=== PATIENT | female | born 1945 | race Caucasian/White ===

== ENCOUNTER 2016-08-02 08:20 | Emergency (ER) | payer MEDICARE, OTHER ==
--- NOTE | 2016-08-02 09:15 | ER NURSING DOCUMENTATION ---
Nurse's Notes [facility] Name:Jaida Woodall Age:70 yrs Sex:Female :1945 Arrival Date:08/02/2016 Time:08:20 Bed1 Private MD: Diagnosis:Cellulitis of Finger Presentation: 08/02 08:27 Acuity: MARY JANE 4 tg 08:33 Presenting complaint: Patient states: Lac on left ring finger tip- occurred several tg days ago, treated in another ED with "gel tape." Pt concerned because wound has begun throbbing (yesterday). Pt concerned for possible infection or that some of the "gel tape" is still in the wound. Transition of care: patient was not received from another setting of care. 08:33 Method Of Arrival: Private Vehicle tg Triage Assessment: 08:34 General: Appears in no apparent distress, Behavior is cooperative, pleasant. Pain: tg Complains of pain in palmar aspect of distal phalanx of left ring finger. Neuro: Level of Consciousness is awake, alert. Musculoskeletal: Range of motion intact in all extremities. Injury Description: Avulsion wound is moist, no obvious/significant swelling or redness. around wound site. Historical: - Allergies: No known drug Allergies; - Home Meds: 1. Aspirin Oral 2. antidepressant - PMHx: DEPRESSION; cardiac history; - PSHx: Unable to obtain; - Tetanus: < 10 years. - Ebola Screening: : Patient negative for fever greater than or equal to 101.5 degrees Fahrenheit, and additional compatible Ebola Virus Disease symptoms. Patient denies exposure to infectious person. Patient denies travel to an Ebola-affected area in the 21 days before illness onset. No symptoms or risks identified at this time. . - Immunization history: Flu Vaccine < 1 year. - Social history: Smoking status: Patient states was never smoker of tobacco. Screenin:37 Infectious Disease Risk Unable to Obtain. Abuse screen: Denies threats or abuse. Denies tg injuries from another. Nutritional screening: No deficits noted. Assessment: 08:37 See Triage Assessment done by same RN. tg Vital Signs: 09:14 BP 128 / 108; Pulse 84; Resp 16; Pulse Ox 90% ; Pain 3/10; tg ED Course: 08:21 Patient arrived in ED. ds 08:25 Shiva Fisher MD is Attending Physician. tl1 08:27 Triage completed. tg 08:33 Yadiel Carlos, RN is Primary Nurse. tg 08:36 Arm band placed on. tg 08:37 Valuables Remains with patient. tg 09:14 Shiva Fisher MD is Referral Physician. tl1 09:14 Wound care to laceration located on palmar aspect of distal phalanx of left ring finger tg was cleaned with soap and water, dressed with bacitracin, tube gauze, xeroform. Administered Medications: No medications were administered Outcome: 09:14 Discharge ordered by . tl1 09:15 Discharged to home ambulatory. tg 09:15 Condition: stable 09:15 Discharge Assessment: Patient awake, alert and oriented x 3. No cognitive and/or functional deficits noted. Patient verbalized understanding of disposition instructions. 09:15 Instructed on discharge instructions, follow up and referral plans. wound care. 09:15 Patient left the ED. tg 04 09:29 Discharge F/U Call: Unable to reach: non-working number lp Signatures: Yadiel Carlos, RN RN Angeline Collins RN RN lp Srot, Sylvia, Reg Reg ds Shiva Fisher MD MD tl1
--- NOTE | 2016-08-02 09:16 | ER PHYSICIAN DOCUMENTATION ---
Physician Documentation [facility] ([place], [place]) Name:Jaida Woodall Age:70 yrs Sex:Female :1945 Arrival Date:08/02/2016 Time:08:20 Bed1 Private MD: Shiva Reynolds Disposition: 08/02 10:00 Chart complete. tl1 Disposition: 08/02/16 09:14 Discharged to Home/Self Care. Impression: Cellulitis of Finger. - Condition is Good. - Discharge Instructions: CELLULITIS, Clindamycin - CELLULITIS. - Prescriptions for Clindamycin HCl 300 mg Oral - take 1 capsule by ORAL route every 6 hours for 7 days; 28 capsule. - Medical Reconciliation form form. - Follow up: Shiva Fisher MD; When: 2 - 3 days; Reason: Recheck today's complaints, Continuance of care. - Problem is new. - Symptoms are unchanged. HPI: 08:26 This 70 yrs old Female presents to ER with complaints of Finger Injury - L tl1 HAND. 08:30 The patient or guardian reports a laceration, clean, 1 cm(s). The complaints affect the tl1 radial aspect of index finger tip, left hand. Context: The problem was sustained at home, resulted from Cutting an onion with a very sharp knife.. Onset: The symptom(s)/episode began/occurred suddenly, 4 day(s) ago. The patient has been recently seen by a physician: another ED. Today she has noted increased throbbing and perhaps a slight increase in redness. She's worried about possible infection. She says she had an ablation for A fib with removal of her left atrial appendage in May and that she has a wire in her heart , apparently part of a device to monitor her heart beat.. Historical: - Allergies: No known drug Allergies; - Home Meds: 1. Aspirin Oral 2. antidepressant - PMHx: DEPRESSION; cardiac history; - PSHx: Unable to obtain; - Tetanus: < 10 years. - Ebola Screening: : Patient negative for fever greater than or equal to 101.5 degrees Fahrenheit, and additional compatible Ebola Virus Disease symptoms. Patient denies exposure to infectious person. Patient denies travel to an Ebola-affected area in the 21 days before illness onset. No symptoms or risks identified at this time. . - Immunization history: Flu Vaccine < 1 year. - Social history: Smoking status: Patient states was never smoker of tobacco. ROS: 08:30 MS/extremity: Positive for laceration. tl1 08:30 All other systems are negative. Exam: 08:30 Constitutional: This is a well developed, well nourished patient who is awake, alert, tl1 and in no acute distress. 08:30 Musculoskeletal/extremity: Extremities: grossly normal except: noted in the radial aspect of distal phalanx of left index finger: laceration, , THis is superficial. There is minimal proximal erythema .. 08:30 Musculoskeletal/extremity: Extremities: grossly normal except: tl1 08:30 Skin: Exam negative for see above. Vital Signs: 09:14 BP 128 / 108; Pulse 84; Resp 16; Pulse Ox 90% ; Pain 3/10; tg MDM: 08:26 Patient medically screened. tl1 08:30 Data reviewed: vital signs, nurses notes, and as a result, I will discharge patient. tl1 Counseling: I had a detailed discussion with the patient and/or guardian regarding: the historical points, exam findings, and any diagnostic results supporting the discharge/admit diagnosis, the need for outpatient follow up, to return to the emergency department if symptoms worsen or persist or if there are any questions or concerns that arise at home. Special discussion: This mild erythema looks like normal healing to me, but I can't r/o early infection. this was re-dressed. I asked her to recheck this tomorrow and start clinda if it looks like the redness is spreading.. 08/02 09:14 Order name: Wound Care; Complete Time: 09:14 tg Dispensed Medications: No medications were administered Signatures: Yadiel Carlos, RN RN tg Shiva Fisher MD MD tl1
== END 2016-08-02 09:15 | disposition home or self-care (01) ==
LOC: ER 08:20
DX: L03.012 Cellulitis of left finger (principal); T79.8XXA Other early complications of trauma, initial encounter; S61.211S Laceration without foreign body of left index finger without damage to nail, sequela; I48.91 Unspecified atrial fibrillation; Z79.82 Long term (current) use of aspirin
CPT/HCPCS: 99282